=== PATIENT | female | born 1945 | race Caucasian/White ===

== ENCOUNTER 2022-11-16 10:16 | Inpatient (IN) | payer MEDICARE, OTHER ==
[2022-11-16 10:27] VITALS: BMI 20.7
[2022-11-16 15:08] LABS: HEMOGLOBIN 14.9 GM/dL (10.7-15.3); MCH 30.5 pg (25.7-33.7); MCHC 32.4 g/dl (32.0-36.0); MEAN PLT VOLUME 7.5 fl (7.5-11.1); PLATELET COUNT 258 10^3/uL (134-434); RBC 4.89 M/mm3 (3.60-5.2); RDW 15.2 % (11.6-15.6); WHITE BLOOD COUNT 14.2 K/mm3 (4.0-10.0)
[2022-11-16 15:28] LABS: CALCIUM 9.3 mg/dL (8.5-10.1)
[2022-11-16 15:29] LABS: ALBUMIN 3.2 g/dl (3.4-5.0); BLOOD UREA NITROGEN 14.5 mg/dL (7-18)
[2022-11-16 15:32] LABS: CREATININE 0.9 mg/dL (0.55-1.3)
[2022-11-16 15:33] LABS: TOT PROT 6.9 g/dl (6.4-8.2)
[2022-11-16 15:34] LABS: BILIRUBIN,TOTAL 0.6 mg/dL (0.2-1)
[2022-11-16] MEDS ORDERED: ACETAMINOPHEN 325 MG TABLET (FP) PO PRN ×2 (15:45→15:47)
[2022-11-16 15:54] LABS: ANISOCYTOSIS 0; HELMET CELLS 0; HOWELL-JOLLY BODIES 0; MACROCYTOSIS 0; OVALOCYTE 0; ROULEAU 0; SICKELED CELLS 0; TARGET CELLS 0; TEAR DROP CELLS 0; TOXIC GRANULATION 0
[2022-11-16 18:04] LABS: EPI CELLS 14 /uL (0-25.1); HYALINE CASTS 2 /uL (0-3.1); PH,URINE 7.5 (5.0-8.0); URINE APPEARANCE TURBID; URINE BACTERIA 9 /uL (0-1359); URINE BILIRUBIN NEGATIVE (NEGATIVE); URINE COLOR YELLOW; URINE GLUCOSE (UA) NEGATIVE (NEGATIVE); URINE KETONE NEGATIVE (NEGATIVE); URINE LEUK ESTERASE TRACE (NEGATIVE); URINE NITRITE NEGATIVE (NEGATIVE); URINE PROTEIN TRACE (NEGATIVE); URINE WBC 86 /uL (0-25.8)
[2022-11-16 21:24] LABS: URINE RBC 57.2 /uL (0-23.9)
[2022-11-17] MEDS ORDERED: POLYETHYLENE GLYCOL (HEALTHYLAX) 3350 17 GM PACKET PO PRN (09:10)
[2022-11-17] MEDS ORDERED: LEVOTHYROXINE NA 75 MCG TABLET (FP) PO ONE (09:30)
[2022-11-17] MEDS: amLODIPine BESYLATE 5 MG TABLET (FP) PO SCH (10:04)
[2022-11-17] MEDS: traMADol HCL 50 MG TABLET PO PRN (10:05)
[2022-11-17] MEDS: clonazePAM 0.5 MG TABLET PO SCH ×2 (10:05→23:05)
[2022-11-17] MEDS: THIAMINE HCL 100 MG TABLET (FP) PO SCH (10:05)
[2022-11-17] MEDS: PANTOPRAZOLE 40 MG TABLET PO SCH (10:05)
[2022-11-17] MEDS: VENLAFAXINE HCL 75 MG E.R. CAPSULES PO SCH (10:06)
[2022-11-17] MEDS: FOLIC ACID 1 MG TABLET (FP) PO SCH (10:06)
[2022-11-17] MEDS: ENOXAPARIN NA (PORCINE) 40 MG/0.4 ML DISP.SYRIN SQ SCH (10:06)
[2022-11-17] MEDS: FLUoxetine HCL 20 MG CAPSULE PO SCH (10:07)
[2022-11-17] MEDS: MIDODRINE HCL 2.5 MG TABLET PO SCH ×2 (12:28→17:40)
[2022-11-17] MEDS: GABAPENTIN 100 MG CAPSULE PO SCH ×2 (14:11→23:04)
[2022-11-17] MEDS ORDERED: SENNOSIDES 8.6MG TABLET (FP) PO SCH (22:00)
[2022-11-17] MEDS: SENNOSIDES 8.6MG TABLET (FP) PO SCH (23:04)
[2022-11-17] MEDS: OLANZapine 2.5 MG TABLET PO SCH (23:51)
[2022-11-18] MEDS: GABAPENTIN 100 MG CAPSULE PO SCH ×3 (06:41→23:09)
[2022-11-18] MEDS: LEVOTHYROXINE NA 75 MCG TABLET (FP) PO SCH (06:41)
[2022-11-18] MEDS: PANTOPRAZOLE 40 MG TABLET PO SCH ×3 (10:30→13:25)
[2022-11-18] MEDS: VENLAFAXINE HCL 75 MG E.R. CAPSULES PO SCH (10:33)
[2022-11-18] MEDS: clonazePAM 0.5 MG TABLET PO SCH ×2 (10:33→23:11)
[2022-11-18] MEDS: amLODIPine BESYLATE 5 MG TABLET (FP) PO SCH (10:34)
[2022-11-18] MEDS: THIAMINE HCL 100 MG TABLET (FP) PO SCH (10:34)
[2022-11-18] MEDS: FOLIC ACID 1 MG TABLET (FP) PO SCH (10:34)
[2022-11-18] MEDS: ENOXAPARIN NA (PORCINE) 40 MG/0.4 ML DISP.SYRIN SQ SCH (10:34)
[2022-11-18] MEDS: FLUoxetine HCL 20 MG CAPSULE PO SCH (10:34)
[2022-11-18] MEDS: MIDODRINE HCL 2.5 MG TABLET PO SCH ×2 (10:38→19:02)
[2022-11-18 15:25] VITALS: RESP 18
[2022-11-18] MEDS: SENNOSIDES 8.6MG TABLET (FP) PO SCH (23:08)
[2022-11-18] MEDS: OLANZapine 2.5 MG TABLET PO SCH (23:09)
[2022-11-19] MEDS: LEVOTHYROXINE NA 75 MCG TABLET (FP) PO SCH (06:06)
[2022-11-19] MEDS: GABAPENTIN 100 MG CAPSULE PO SCH (06:06)
[2022-11-19] MEDS: PANTOPRAZOLE 40 MG TABLET PO SCH ×2 (07:46→09:09)
[2022-11-19] MEDS: DONEPEZIL HCL 10 MG TABLET (FP) PO SCH ×2 (09:01→09:02)
[2022-11-19] MEDS: amLODIPine BESYLATE 5 MG TABLET (FP) PO SCH (09:09)
[2022-11-19] MEDS: FLUoxetine HCL 20 MG CAPSULE PO SCH (09:09)
[2022-11-19] MEDS: VENLAFAXINE HCL 75 MG E.R. CAPSULES PO SCH (09:09)
[2022-11-19] MEDS: ENOXAPARIN NA (PORCINE) 40 MG/0.4 ML DISP.SYRIN SQ SCH (09:09)
[2022-11-19] MEDS: THIAMINE HCL 100 MG TABLET (FP) PO SCH (09:09)
[2022-11-19] MEDS: MIDODRINE HCL 2.5 MG TABLET PO SCH (09:09)
[2022-11-19] MEDS: FOLIC ACID 1 MG TABLET (FP) PO SCH (09:09)
[2022-11-19] MEDS: clonazePAM 0.5 MG TABLET PO SCH (09:10)
[2022-11-19 09:19] VITALS: BP 125/73; PULSE 98; TEMP 98
[2022-11-19] MEDS: traMADol HCL 50 MG TABLET PO PRN (11:28)
[2022-11-19] MEDS ORDERED: DONEPEZIL HCL 5 MG TABLET (FP) PO SCH (22:00)
== END 2022-11-19 14:12 | DRG 536 ==
LOC: JER 10:16 → JERBED 15:32 → J6S 22:34
PROVIDERS: ADMIT Internal Medicine; ATTEND Internal Medicine
DX: S32.512A Fracture of superior rim of left pubis, initial encounter for closed fracture (principal); S32.19XA Other fracture of sacrum, initial encounter for closed fracture; S32.592A Other specified fracture of left pubis, initial encounter for closed fracture; R55 Syncope and collapse; I10 Essential (primary) hypertension; F03.90 Unspecified dementia, unspecified severity, without behavioral disturbance, psychotic disturbance, mood disturbance, and anxiety; E03.9 Hypothyroidism, unspecified; S06.0X0A Concussion without loss of consciousness, initial encounter; D72.829 Elevated white blood cell count, unspecified; R26.81 Unsteadiness on feet; M25.512 Pain in left shoulder; M62.81 Muscle weakness (generalized); K59.00 Constipation, unspecified; F41.8 Other specified anxiety disorders; W01.0XXA Fall on same level from slipping, tripping and stumbling without subsequent striking against object, initial encounter; Y92.098 Other place in other non-institutional residence as the place of occurrence of the external cause
CPT/HCPCS: 0241U-QW; 36415; 70450-TC; 71046-TC-FY; 72125-TC; 72170-TC-FY; 73030-TC-LT-FY; 73502-TC-LT-FY; 73700-TC-RT; 80053; 81003; 85025; 87086; 93005; 93010; 97116-GP; 97162-GP; 99285-25; C9803-CS; U0003; U0005

== ENCOUNTER 2024-05-04 14:38 | Inpatient (IN) | payer OTHER ==
[2024-05-04 15:26] VITALS: BMI 25.2
[2024-05-04] MEDS ORDERED: ACETAMINOPHEN INJECTION 100 ML IVPB ONE (16:03)
[2024-05-04] MEDS: ACETAMINOPHEN 1000 MG/100 ML BAG IVPB ONE (16:05)
[2024-05-04] MEDS: SODIUM CHLORIDE 0.9% 500 ML INFUS.BAG IV ONE (16:05)
[2024-05-04 16:09] LABS: VENOUS BASE EXCESS 1.2 mmol/L (-2-2); VENOUS O2 SATURATION 51.7 % (70-80); VENOUS PCO2 36.8 mmHg (38-52); VENOUS PH 7.448 (7.310-7.410)
[2024-05-04 16:12] LABS: BASO % 0.1 % (0-2.0); EOS % 0.3 % (0-4.5); HEMATOCRIT 44.1 % (32.4-45.2); HEMOGLOBIN 14.7 GM/dL (10.7-15.3); LYMPH % 8.4 % (8-40); MCH 29.7 pg (25.7-33.7); MCHC 33.3 g/dl (32.0-36.0); MEAN CELL VOLUME 89.1 fl (80-96); MONO % 10.8 % (3.8-10.2); NEUT % 80.4 % (42.8-82.8); PLATELET COUNT 184 10^3/uL (134-434); RBC 4.95 M/mm3 (3.60-5.2); RDW 15.4 % (11.6-15.6)
[2024-05-04 16:17] LABS: INR 1.05 (0.83-1.09); PROTHROMBIN TIME (PATIENT) 12.1 SEC (9.7-13.0)
[2024-05-04 16:20] LABS: ACTIVATED PTT 32.3 SECONDS (25.2-36.5)
[2024-05-04 16:29] LABS: ALBUMIN 4.3 g/dl (3.4-5.0); CALCIUM 9.8 mg/dL (8.5-10.1)
[2024-05-04 16:32] LABS: CREATININE 1.2 mg/dL (0.55-1.3)
[2024-05-04 16:34] LABS: BILIRUBIN,TOTAL 0.7 mg/dL (0.2-1)
[2024-05-04] MEDS ORDERED: traMADol HCL 50 MG TABLET PO PRN (18:10)
[2024-05-04] MEDS ORDERED: PANTOPRAZOLE 40 MG TABLET PO ONE (18:47)
[2024-05-04] MEDS ORDERED: HEPARIN NA (PORCINE) 5,000 UNITS/ML 1ML VIAL ONE (18:48)
[2024-05-04] MEDS ORDERED: FOLIC ACID 1 MG TABLET (FP) ONE (18:48)
[2024-05-04] MEDS: D5-1/2NS+20 MEQ KCL - 20 MEQ/1,000 ML INFUS.BAG IV SCH ×2 (19:00→21:25)
[2024-05-04] MEDS: FOLIC ACID 1 MG TABLET (FP) PO SCH (19:16)
[2024-05-04] MEDS: HEPARIN NA (PORCINE) 5,000 UNITS/ML 1ML VIAL SQ SCH (19:16)
[2024-05-04] MEDS: PANTOPRAZOLE 40 MG TABLET PO SCH (19:16)
[2024-05-04] MEDS ORDERED: HEPARIN NA (PORCINE) 5,000 UNITS/ML 1ML VIAL SQ SCH (22:00)
[2024-05-04] MEDS: OLANZapine 2.5 MG TABLET PO SCH (22:06)
[2024-05-04] MEDS: SENNOSIDES 8.6MG TABLET (FP) PO SCH (22:06)
[2024-05-04] MEDS: DONEPEZIL HCL 5 MG TABLET (FP) PO SCH (22:06)
[2024-05-04] MEDS: GABAPENTIN 100 MG CAPSULE PO SCH (22:06)
[2024-05-04] MEDS: POLYETHYLENE GLYCOL (HEALTHYLAX) 3350 17 GM PACKET PO SCH (22:06)
[2024-05-04] MEDS: CLONAZEPAM 0.125 MG SL SCH (23:02)
[2024-05-05] MEDS: LEVOTHYROXINE NA 75 MCG TABLET (FP) PO SCH (06:05)
[2024-05-05 07:22] LABS: BASO % 0.1 % (0-2.0); EOS % 0.3 % (0-4.5); HEMATOCRIT 43.7 % (32.4-45.2); HEMOGLOBIN 14.6 GM/dL (10.7-15.3); MCH 29.7 pg (25.7-33.7); MCHC 33.3 g/dl (32.0-36.0); MEAN CELL VOLUME 89.1 fl (80-96); MEAN PLT VOLUME 9.2 fl (7.5-11.1); MONO % 12.8 % (3.8-10.2); NEUT % 70.8 % (42.8-82.8); PLATELET COUNT 152 10^3/uL (134-434); RDW 15.4 % (11.6-15.6); WHITE BLOOD COUNT 5.5 K/mm3 (4.0-10.0)
[2024-05-05 07:49] LABS: POTASSIUM 3.4 mmol/L (3.5-5.1)
[2024-05-05 07:52] LABS: BLOOD UREA NITROGEN 10.6 mg/dL (7-18); CALCIUM 8.9 mg/dL (8.5-10.1)
[2024-05-05 09:21] LABS: ERYTHROCYTE SEDIMENTATION RATE 14 mm/hr (0-30)
[2024-05-05] MEDS: KCL 10 MEQ IVPB 10 MEQ/100 ML INFUS.BAG IVPB SCH (10:31)
[2024-05-05] MEDS: VENLAFAXINE HCL 75 MG E.R. CAPSULES PO SCH (10:32)
[2024-05-05] MEDS: THIAMINE 100 MG TABLET PO SCH (10:32)
[2024-05-05] MEDS: FLUoxetine HCL 20 MG CAPSULE PO SCH (10:32)
[2024-05-05] MEDS: DEXAMETHASONE SOD PHOSPHATE 10 MG/1 ML VIAL IVPUSH SCH (14:33)
[2024-05-05] MEDS: REMDESIVIR 200 MG in SODIUM CHLORIDE 250 ML IVPB ONE (14:44)
[2024-05-06 06:46] LABS: BASO % 0.5 % (0-2.0); EOS % 0.4 % (0-4.5); HEMATOCRIT 44.4 % (32.4-45.2); HEMOGLOBIN 14.9 GM/dL (10.7-15.3); LYMPH % 28.8 % (8-40); MCH 29.8 pg (25.7-33.7); MCHC 33.5 g/dl (32.0-36.0); MEAN CELL VOLUME 88.9 fl (80-96); MEAN PLT VOLUME 9.3 fl (7.5-11.1); MONO % 15.8 % (3.8-10.2); NEUT % 54.5 % (42.8-82.8); PLATELET COUNT 131 10^3/uL (134-434); RDW 15.4 % (11.6-15.6); WHITE BLOOD COUNT 5.4 K/mm3 (4.0-10.0)
[2024-05-06 06:57] LABS: POTASSIUM 3.4 mmol/L (3.5-5.1)
[2024-05-06 07:03] LABS: BLOOD UREA NITROGEN 12.7 mg/dL (7-18); CALCIUM 8.4 mg/dL (8.5-10.1)
[2024-05-06 07:06] LABS: CREATININE 0.8 mg/dL (0.55-1.3)
[2024-05-06] MEDS: KCL 10 MEQ IVPB 10 MEQ/100 ML INFUS.BAG IVPB SCH (08:16)
[2024-05-06 11:11] LABS: URINE APPEARANCE CLEAR; URINE BILIRUBIN NEGATIVE (NEGATIVE); URINE COLOR YELLOW; URINE GLUCOSE (UA) NEGATIVE (NEGATIVE); URINE KETONE 1+ (NEGATIVE); URINE LEUK ESTERASE NEGATIVE (NEGATIVE); URINE NITRITE NEGATIVE (NEGATIVE); URINE PROTEIN NEGATIVE (NEGATIVE)
[2024-05-06] MEDS: POTASSIUM CHLORIDE TABS 20 MEQ TABLET.ER (FP) PO SCH (12:44)
[2024-05-06] MEDS: REMDESIVIR 100 MG in SODIUM CHLORIDE 250 ML IVPB SCH (13:52)
[2024-05-06] MEDS: ACETAMINOPHEN 325 MG TABLET (FP) PO PRN (21:05)
[2024-05-07 08:22] LABS: HEMATOCRIT 42.4 % (32.4-45.2); HEMOGLOBIN 14.2 GM/dL (10.7-15.3); LYMPH % 18.7 % (8-40); MCH 29.8 pg (25.7-33.7); MCHC 33.5 g/dl (32.0-36.0); MEAN CELL VOLUME 88.9 fl (80-96); MEAN PLT VOLUME 9.4 fl (7.5-11.1); MONO % 10.6 % (3.8-10.2); NEUT % 70.7 % (42.8-82.8); PLATELET COUNT 160 10^3/uL (134-434); RBC 4.78 M/mm3 (3.60-5.2); RDW 15.6 % (11.6-15.6); WHITE BLOOD COUNT 5.8 K/mm3 (4.0-10.0)
[2024-05-07 08:44] LABS: POTASSIUM 4.4 mmol/L (3.5-5.1)
[2024-05-07 08:50] LABS: CALCIUM 8.3 mg/dL (8.5-10.1)
[2024-05-07 08:53] LABS: BLOOD UREA NITROGEN 17.4 mg/dL (7-18)
[2024-05-07 08:56] LABS: CREATININE 0.9 mg/dL (0.55-1.3)
[2024-05-08 09:07] LABS: BASO % 0.1 % (0-2.0); HEMATOCRIT 42.6 % (32.4-45.2); HEMOGLOBIN 14.6 GM/dL (10.7-15.3); LYMPH % 12.7 % (8-40); MCH 30.2 pg (25.7-33.7); MCHC 34.4 g/dl (32.0-36.0); MEAN CELL VOLUME 87.9 fl (80-96); MEAN PLT VOLUME 9.4 fl (7.5-11.1); MONO % 7.6 % (3.8-10.2); NEUT % 79.6 % (42.8-82.8); PLATELET COUNT 182 10^3/uL (134-434); RBC 4.85 M/mm3 (3.60-5.2); RDW 15.5 % (11.6-15.6); WHITE BLOOD COUNT 8.9 K/mm3 (4.0-10.0)
[2024-05-08 09:25] LABS: POTASSIUM 4.6 mmol/L (3.5-5.1)
[2024-05-08 09:30] LABS: BLOOD UREA NITROGEN 17.4 mg/dL (7-18)
[2024-05-08 09:31] LABS: CALCIUM 8.8 mg/dL (8.5-10.1)
[2024-05-08 09:33] LABS: CREATININE 0.9 mg/dL (0.55-1.3)
[2024-05-10 14:02] VITALS: RESP 18
[2024-05-10 14:05] VITALS: TEMP 98.2
[2024-05-10 19:00] VITALS: BP 127/67; PULSE 61
== END 2024-05-10 19:22 | disposition home or self-care (01) | DRG 179 ==
LOC: JER 14:38 → JERBED 17:50 → OBSVTOIN 17:55 → J4S 20:17
PROVIDERS: ADMIT Internal Medicine; ATTEND Internal Medicine
PROC: XW033E5 Introduction of Remdesivir Anti-infective into Peripheral Vein, Percutaneous Approach, New Technology Group 5 (ICD-10-PCS; principal; 2024-05-05)
DX: U07.1 COVID-19 (principal); K59.00 Constipation, unspecified; F03.90 Unspecified dementia, unspecified severity, without behavioral disturbance, psychotic disturbance, mood disturbance, and anxiety; F41.8 Other specified anxiety disorders; F31.9 Bipolar disorder, unspecified; I10 Essential (primary) hypertension; E03.9 Hypothyroidism, unspecified; R26.81 Unsteadiness on feet; M62.81 Muscle weakness (generalized); D69.6 Thrombocytopenia, unspecified; R55 Syncope and collapse; R09.02 Hypoxemia; R00.0 Tachycardia, unspecified; R29.6 Repeated falls; R50.9 Fever, unspecified; E86.0 Dehydration; W18.30XA Fall on same level, unspecified, initial encounter; Y92.098 Other place in other non-institutional residence as the place of occurrence of the external cause; Y99.9 Unspecified external cause status
CPT/HCPCS: 0241U-QW; 36415; 70450-TC; 71045-TC-FY; 72125-TC; 72170-TC-FY; 80048; 80053; 81003; 82803; 83605; 84484; 85025; 85610; 85651; 85730; 86140; 86850; 86900; 86901; 87040; 87635; 93005; 93010; 97116-GP; 97161-GP; 99285-25; G0378; J0131; J0248; J1100; J1644

== ENCOUNTER 2024-06-01 16:19 | Emergency (ER) | payer OTHER ==
[2024-06-01 16:50] VITALS: TEMP 98.2; BMI 23.3
[2024-06-01] MEDS ORDERED: ACETAMINOPHEN 325 MG TABLET (FP) ONE (18:36)
[2024-06-01] MEDS: ACETAMINOPHEN 500 MG TABLET (FP) PO ONE (18:40)
[2024-06-02 00:25] VITALS: BP 138/73; PULSE 93; RESP 14
== END 2024-06-02 00:25 ==
LOC: JER 16:19
DX: M54.50 Low back pain, unspecified (principal); R19.7 Diarrhea, unspecified; W19.XXXA Unspecified fall, initial encounter; Y92.129 Unspecified place in nursing home as the place of occurrence of the external cause
CPT/HCPCS: 70450-TC; 71045-TC-FY; 72170-TC-FY; 99284-25

== ENCOUNTER 2024-06-03 13:17 | Emergency (ER) | payer OTHER ==
[2024-06-03 13:39] VITALS: BP 126/76; PULSE 106; RESP 17; TEMP 98.6
[2024-06-03 15:06] LABS: BASO % 0.3 % (0-2.0); HEMATOCRIT 43.9 % (32.4-45.2); HEMOGLOBIN 14.9 GM/dL (10.7-15.3); LYMPH % 18.3 % (8-40); MCH 29.8 pg (25.7-33.7); MEAN CELL VOLUME 87.6 fl (80-96); MEAN PLT VOLUME 7.8 fl (7.5-11.1); NEUT % 68.4 % (42.8-82.8); PLATELET COUNT 268 10^3/uL (134-434); RBC 5.01 M/mm3 (3.60-5.2); WHITE BLOOD COUNT 7.9 K/mm3 (4.0-10.0)
[2024-06-03 15:24] LABS: POTASSIUM 3.9 mmol/L (3.5-5.1)
[2024-06-03 15:25] LABS: CALCIUM 9.1 mg/dL (8.5-10.1)
[2024-06-03 15:26] LABS: ALBUMIN 3.2 g/dl (3.4-5.0)
[2024-06-03 15:31] LABS: BILIRUBIN,TOTAL 0.9 mg/dL (0.2-1)
== END 2024-06-03 19:42 | disposition left against medical advice (07) ==
LOC: JER 13:17
DX: R53.1 Weakness (principal); R26.2 Difficulty in walking, not elsewhere classified; Z20.822 Contact with and (suspected) exposure to COVID-19
CPT/HCPCS: 0241U-QW; 36415; 80053; 84484; 85025; 93005; 93010; 99284-25

== ENCOUNTER 2024-06-07 12:02 | Emergency (ER) | payer OTHER ==
[2024-06-07 13:20] LABS: BASO % 0.4 % (0-2.0); EOS % 1.3 % (0-4.5); HEMATOCRIT 46.4 % (32.4-45.2); HEMOGLOBIN 15.9 GM/dL (10.7-15.3); LYMPH % 14.5 % (8-40); MCH 29.9 pg (25.7-33.7); MCHC 34.3 g/dl (32.0-36.0); MEAN CELL VOLUME 87.2 fl (80-96); MEAN PLT VOLUME 7.8 fl (7.5-11.1); MONO % 7.9 % (3.8-10.2); NEUT % 75.9 % (42.8-82.8); PLATELET COUNT 264 10^3/uL (134-434); RBC 5.32 M/mm3 (3.60-5.2); RDW 16.1 % (11.6-15.6)
[2024-06-07 13:23] VITALS: BMI 23.3
[2024-06-07] MEDS: LACTATED RINGERS SOLUTION 1000 ML INFUS.BAG IV ONE ×2 (13:23→15:33)
[2024-06-07 14:15] LABS: POTASSIUM 4.5 mmol/L (3.5-5.1)
[2024-06-07 14:18] LABS: ALBUMIN 3.5 g/dl (3.4-5.0); BLOOD UREA NITROGEN 10.9 mg/dL (7-18)
[2024-06-07 14:21] LABS: CREATININE 1.1 mg/dL (0.55-1.3)
[2024-06-07 14:22] LABS: TOT PROT 7.4 g/dl (6.4-8.2)
[2024-06-07 17:07] VITALS: BP 127/78; PULSE 93; RESP 18; TEMP 98.2
== END 2024-06-07 17:21 | disposition home or self-care (01) ==
LOC: JER 12:02
DX: R19.7 Diarrhea, unspecified (principal); Z20.822 Contact with and (suspected) exposure to COVID-19
CPT/HCPCS: 0241U-QW; 36415; 80053; 83690; 85025; 93005; 93010; 99284-25